=== PATIENT | male | born 1990 | race Two or more races ===

== ENCOUNTER 2019-12-30 23:43 | Emergency (ER) | payer SELFPAY ==
[~2019-12-30] VITALS: Ht 185.4 cm; Wt 77.8 kg
[2019-12-30 23:52] VITALS: BP 124/81
--- NOTE | 2019-12-31 00:37 | NUR ---
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 Pt states he saw "bellys" in his nose and they "go in" when he touches them. No evidence of foreign body present in nose.
== END 2019-12-31 00:50 | disposition home or self-care (01) ==
LOC: ED 12-31 00:10
DX: R09.81 Nasal congestion (principal); F15.10 Other stimulant abuse, uncomplicated; F17.200 Nicotine dependence, unspecified, uncomplicated
CPT/HCPCS: 99281